=== PATIENT | male | born 1970 | race Caucasian/White ===

== ENCOUNTER 2023-09-28 07:05 | Day surgery (SDC) | payer MEDICAID ==
[~2023-09-28] VITALS: Ht 170.2 cm; Wt 72.6 kg
[2023-09-28] MEDS ORDERED: fentaNYL CITRATE/PF 100 MCG/2 ML AMP ONE (07:43)
[2023-09-28] MEDS ORDERED: MIDAZOLAM HCL 5 MG/5 ML VIAL ONE (07:43)
[2023-09-28 11:42] VITALS: O2SAT 99
[2023-09-28 12:26] VITALS: BP_SYST 113; PULSE 108; RESP 15
== END 2023-09-28 09:34 | disposition home or self-care (01) ==
LOC: SDS 07:05 → SMU 07:10 → SDS 09:34
PROVIDERS: ATTEND Internal Medicine
DX: K59.09 Other constipation (principal); D12.5 Benign neoplasm of sigmoid colon; R10.30 Lower abdominal pain, unspecified; K64.8 Other hemorrhoids; I10 Essential (primary) hypertension; E11.9 Type 2 diabetes mellitus without complications; E78.5 Hyperlipidemia, unspecified; Z79.84 Long term (current) use of oral hypoglycemic drugs; Z79.899 Other long term (current) drug therapy
CPT/HCPCS: 45385; 99152; 82948; 88305; G0378; J2250; J3010